=== PATIENT | male | born 1980 | race Caucasian/White ===

== ENCOUNTER 2017-10-24 14:44 | Emergency (ER) | payer MEDICAID, OTHER ==
[~2017-10-24] VITALS: Ht 177.8 cm; Wt 74.0 kg
[~2017-10-24 14:44] MED LIST: AZIT250T PO; CEPH-572 PO; CYCL-120 PO; IBUP-1051 PO; SULF1TAB49 PO
[2017-10-24 15:14] VITALS: BP 125/76
== END 2017-10-24 16:50 | disposition home or self-care (01) ==
LOC: ER 14:45
DX: Z48.01 Encounter for change or removal of surgical wound dressing (principal); Z79.2 Long term (current) use of antibiotics; Z79.1 Long term (current) use of non-steroidal anti-inflammatories (NSAID); Z79.899 Other long term (current) drug therapy
CPT/HCPCS: 99281

== ENCOUNTER 2018-03-28 12:44 | Emergency (ER) | payer MEDICAID, OTHER ==
[~2018-03-28] VITALS: Ht 177.8 cm; Wt 84.1 kg
[~2018-03-28 12:44] MED LIST changes: -CEPH-572 PO; -SULF1TAB49 PO
[2018-03-28 13:02] VITALS: BP 113/84
== END 2018-03-28 15:39 | disposition home or self-care (01) ==
LOC: ER 12:44
DX: M25.511 Pain in right shoulder (principal); F17.200 Nicotine dependence, unspecified, uncomplicated; W11.XXXA Fall on and from ladder, initial encounter; Y93.89 Activity, other specified; Y92.89 Other specified places as the place of occurrence of the external cause; Y99.9 Unspecified external cause status
CPT/HCPCS: 29105; 73030; 99283

== ENCOUNTER 2018-05-03 01:34 | Emergency (ER) | payer MEDICAID ==
[~2018-05-03] VITALS: Ht 177.8 cm; Wt 84.0 kg
[2018-05-03 01:37] VITALS: BP 139/86
== END 2018-05-03 02:48 | disposition left against medical advice (07) ==
LOC: ER 01:34
DX: S01.119A Laceration without foreign body of unspecified eyelid and periocular area, initial encounter (principal); Z53.21 Procedure and treatment not carried out due to patient leaving prior to being seen by health care provider; W26.8XXA Contact with other sharp object(s), not elsewhere classified, initial encounter; Y93.89 Activity, other specified; Y92.89 Other specified places as the place of occurrence of the external cause; Y99.8 Other external cause status

== ENCOUNTER 2018-06-18 18:10 | Emergency (ER) | payer MEDICAID ==
[~2018-06-18] VITALS: Ht 172.7 cm; Wt 81.0 kg
--- NOTE | 2018-06-18 22:00 | NUR ---
NO RESPONSE FROM LOBBY AFTER 3 ATTEMPTS TO ROOM. CALL PLACED TO NUMBER ON FILE. NO ANSWER, PHONE TIMED OUT WENT SILENT. DR. ROMEO INFORMED. ( I WAS FINISHING CHARTING PT RE-CHECKED IN...)
[2018-06-19] MEDS ORDERED: LIDOcaine 1% 30ml preserv. free vial SQ STA (00:18)
[2018-06-19] MEDS ORDERED: cephalexin 500mg capsule PO ONE (00:35)
[2018-06-19] MEDS ORDERED: ondansetron 4mg rapidly disintigrating tab PO ONE ×2 (00:35→01:15)
[2018-06-19] MEDS ORDERED: CEPH-571 PO (01:07)
[2018-06-19] MEDS ORDERED: HYDR-4383 PO (01:08)
[2018-06-19] MEDS ORDERED: HYDROcodone/acetaminophen 5mg/325mg tablet PO ONE (01:10)
[2018-06-19 01:41] VITALS: BP 134/81
== END 2018-06-19 01:45 | disposition home or self-care (01) ==
LOC: ER 18:11
DX: S61.213A Laceration without foreign body of left middle finger without damage to nail, initial encounter (principal); W29.3XXA Contact with powered garden and outdoor hand tools and machinery, initial encounter; Y93.89 Activity, other specified; Y92.89 Other specified places as the place of occurrence of the external cause; Y99.9 Unspecified external cause status
CPT/HCPCS: 73140; 99284; J3490

== ENCOUNTER 2018-06-28 18:28 | Emergency (ER) | payer MEDICAID ==
[~2018-06-28 18:28] MED LIST changes: +CEPH-571 PO; +HYDR-4383 PO
== END 2018-06-28 19:59 | disposition left against medical advice (07) ==
LOC: ER 18:29
DX: S61.213D Laceration without foreign body of left middle finger without damage to nail, subsequent encounter (principal); Z53.21 Procedure and treatment not carried out due to patient leaving prior to being seen by health care provider; W29.3XXD Contact with powered garden and outdoor hand tools and machinery, subsequent encounter

== ENCOUNTER 2018-07-01 11:03 | Emergency (ER) | payer MEDICAID ==
[~2018-07-01] VITALS: Ht 177.8 cm; Wt 78.0 kg
[2018-07-01 11:20] VITALS: BP 109/76
[2018-07-01] MEDS ORDERED: LIDOcaine 1% w/epiNEPHrine 1:200,000 30ml vial IM ONE (11:30)
[2018-07-01] MEDS ORDERED: bacitracin ointment unit dose packet TP STA (12:02)
[2018-07-01] MEDS ORDERED: CEPH500C5 PO (12:02)
[2018-07-01] MEDS ORDERED: bacitracin 15gm ointment TP ONE (12:04)
== END 2018-07-01 12:28 | disposition home or self-care (01) ==
LOC: ER 11:03
DX: S61.213D Laceration without foreign body of left middle finger without damage to nail, subsequent encounter (principal); X58.XXXD Exposure to other specified factors, subsequent encounter
CPT/HCPCS: 64450; 99284

== ENCOUNTER 2018-07-12 22:06 | Emergency (ER) | payer MEDICAID ==
[~2018-07-12 22:06] MED LIST changes: +CEPH500C5 PO
== END 2018-07-13 00:13 | disposition left against medical advice (07) ==
LOC: ER 22:07
DX: Z00.8 Encounter for other general examination (principal); Z53.21 Procedure and treatment not carried out due to patient leaving prior to being seen by health care provider

== ENCOUNTER 2019-03-26 20:52 | Emergency (ER) | payer MEDICAID ==
[~2019-03-26] VITALS: Ht 177.8 cm; Wt 81.0 kg
[2019-03-26 21:01] VITALS: BP 151/92
[2019-03-26] MEDS ORDERED: LIDOcaine 1% 30ml preserv. free vial IJ ONE (21:15)
== END 2019-03-26 21:49 | disposition home or self-care (01) ==
LOC: ER 20:53
DX: M25.512 Pain in left shoulder (principal); G89.29 Other chronic pain; F15.10 Other stimulant abuse, uncomplicated; M79.18 Myalgia, other site; Z79.899 Other long term (current) drug therapy; Z87.01 Personal history of pneumonia (recurrent)
CPT/HCPCS: 20552; 93005; 99284; J2001

== ENCOUNTER 2019-05-09 01:45 | Emergency (ER) | payer MEDICAID ==
--- NOTE | 2019-05-09 01:47 | NUR ---
PT CHECKED IN FOR COUGH. WENT TO CALL PT FOR TRIAGE AND REGISTRATION STATED HE WENT OUTSIDE TO SMOKE.
== END 2019-05-09 02:11 | disposition left against medical advice (07) ==
LOC: ER 01:45
DX: R05 Cough (principal); Z53.21 Procedure and treatment not carried out due to patient leaving prior to being seen by health care provider